=== PATIENT | female | born 1940 | race African-American/Black ===

== ENCOUNTER 2017-01-22 00:07 | Inpatient (IN) ==
--- NOTE | 2017-01-22 02:09 | Emergency Department Note ---
Arrival - Arrival Chief Complaint: Urogenital - Female ED Nursing Triage Note: C/O Hematuria in giang back- Onset unknown- Nurse that came on at 2300 noticed it during assessment. Unknown when catheter was placed. Pt is nonverbal at baseline Mode of Arrival: Stretcher Time Seen by Provider: 01/22/17 01:16 - History of Present Illness HPI Narrative: This is a 76-year-old female of descent from the [facility] division of his [facility] who has had a previous CVA and dementia resulting in a persistent vegetative state who has chronic renal insufficiency and chronic GI blood loss requiring blood transfusions frequently and who is a DNR with a chronic indwelling Giang catheter from which she gets frequent urinary tract infections who presents with gross hematuria per the Giang catheter. Date of Last Menstrual Period: NA Allergies/Adverse Reactions: Allergies Allergy/AdvReac Type Severity Reaction Status Date / Time morphine AdvReac Mild ITCHING Verified 08/21/16 12:02 Home Medications: Home Medications Medication Instructions Recorded Confirmed Type Aspirin [Ecotrin] 1 tablet PEG DAILY 03/10/15 04/04/16 History Carvedilol [Coreg] 3.125 mg PEG BID 01/24/16 04/04/16 History Doxazosin Mesylate 2 mg PEG DAILY 01/24/16 04/04/16 History Insulin Detemir [Levemir] 34 unit SUBCUT BEDTIME 01/24/16 04/04/16 History Multivitamin Liquid (Centrum) 15 ml PEG DAILY 01/24/16 04/04/16 History [Centrum Liquid] Ferrous Sulfate Liquid [Feosol 300 mg PEG TID udcup 04/09/16 Rx Liquid] Review of System - Review of System ROS unobtainable: due to mental status, due to dementia, due to encephalopathy Medical,Surgical,& Family Hx - Medical History Cardio: History of: CHF, Hypertension No history of: [place] Neurology: History of: Cerebrovascular Accident (2004 weak on left side.) No history of: Seizures Endocrine: History of: Diabetes Mellitus (IDDM), Diabetes Mellitus (NIDDM) Respiratory: History of: Pulmonary Embolism Renal: History of: Renal Failure, Renal Problems ( kidney failure from dehydration in the past) Genitourinary: History of: Recurring Urinary Tract Infections (has giang 2015) Gastrointestinal: History of: Gastrointestinal Bleed, Gastrointestinal Cancer, GI Problems (PEG tube, dysphagia, colostomy) Musculoskeletal: History of: Back/Neck Problems (history of back surgery to remove growth.) No history of: Musculoskeletal Problems Hematology: History of: Clotting Problems (prior history of DVTs) Other: History of: Cancer (Colon Cancer 2005), Skin Problems (decubitus ulcer on buttocks) - Surgical History HEENT Surgeries: Surgical HX of: Eye Surgery (cataract surgery) Abdominal Surgeries: Surgical HX of: Abdominal Surgery (resection of 80% of the colon), Colonoscopy (last done in our records on 08/01/[address] Almonte-- residual 40 cm normal) Reproductive Surgeries: Surgical HX of;: Section, Hysterectomy Orthopedic Surgeries: Surgical HX of;: Orthopedic Surgery (screw placed to left hip in 2013), Total Hip Replacement - Family History Family History: Reports;: Family Diabetes (sister, mom), Family Heart Disease ( brother-heart attack), Family Hypertension (sister), Family Stroke (brother) - Social History Smoking Status: Unknown if ever smoked Frequency of Alcohol Use: None Type of Drug Use: None Exam Vital Signs: Vital Signs Temperature 98.4 F 01/22/17 00:07 Pulse Rate 65 01/22/17 00:07 Respiratory Rate 16 01/22/17 00:07 Blood Pressure 148/57 01/22/17 00:07 O2 Sat by Pulse Oximetry 99 01/22/17 00:07 - General Exam limited due to: ALOC - Head Head exam: Present: atraumatic - Eye Eye exam: Present: normal appearance - ENT ENT exam: Present: normal exam - Neck Neck exam: Present: normal inspection - Chest Chest inspection: Present: normal inspection - Respiratory Respiratory exam: Present: normal lung sounds bilaterally - Cardiovascular Cardiovascular exam: Present: regular rate, normal rhythm - Abdominal Exam Abdominal exam: Present: soft, normal bowel sounds - Back Exam Back exam: Present: normal inspection - Skin Skin exam: Present: warm, dry Course Course Narrative: The patient's laboratory tests are consistent with serious dehydration. The patient has gross hematuria the cause of which is not clear. The CT scan of the abdomen and pelvis did not reveal a specific reason why she has hematuria. Therefore a three-way catheter will be placed with continuous bladder irrigation with possible urology consultation. The patient will be admitted to the hospital under the hospitalist service. The case was discussed with the hospitalist who agreed to admit the patient. Results - Labs CBC & BMP: 01/22/17 02:52 01/22/17 02:52 Disposition Clinical Impression: Dehydration, Gross hematuria Disposition: Still a Patient Additional Instructions: The patient's laboratory tests are consistent with serious dehydration. The patient has gross hematuria the cause of which is not clear. The CT scan of the abdomen and pelvis did not reveal a specific reason why she has hematuria. Therefore a three-way catheter will be placed with continuous bladder irrigation with possible urology consultation. The patient will be admitted to the hospital under the hospitalist service. The case was discussed with the hospitalist who agreed to admit the patient.
[2017-01-22 03:07] LABS: Basophils % 0.3 % (0.0-0.8); Eosinophils # 0.7 10*3/uL (0.0-0.87); Eosinophils % 5.7 % (0.00-10.9); Hematocrit 34.5 VOL% (35.7-47.0); Hemoglobin 10.8 GM/DL (12.0-16.0); Immature Granulocytes % 4.5 %; Immature Granulocytes Absolute 0.52 #; Lymphocytes # 1.5 10*3/uL (1.4-4.0); Mean Corpuscular HGB Conc 31.3 GM/DL (32-36); Mean Corpuscular Hemoglobin 27 PG (27-34); Mean Corpuscular Volume 85.2 FL (87-102); Mean Platelet Volume 12.2 FL (9.6-12.0); Monocytes # 1.3 10*3/uL (0.11-0.8); Monocytes % 11.4 % (1.7-12.7); NRBC # 0.03 10*3/uL; Neutrophils # 7.5 10*3/uL (1.4-7.4); Neutrophils % 65.1 % (38.7-73.9); Platelet Count 188 T/CUMM (130-400); Red Blood Count 4.05 MC/CUMM (3.8-5.5); Red Cell Distribution Width 16.2 % (9.3-17.3); White Blood Count 11.5 T/CUMM (4-12)
[2017-01-22 03:25] LABS: Apearance,Urine CLOUDY (Clear); Bacteria,Urine Occasional /HPF (Few); Bilirubin,Urine Negative (Negative); Blood, Urine Large mg/dL (Negative); Glucose,Urine (UA) 50 mg/dL (Negative); Ketones,Urine Negative (Negative); Nitrite,Urine Negative (Negative); Protein,Urine 100 MG/DL; RBC,Urine 3841 /HPF (0-4); Urine Color Red (Yellow); Urine Specific Gravity 1.017 (1.001-1.035); Urine Urobilinogen < 2.0 EU/DL (0.2-1.0); WBC,Urine 31 /HPF (0-6)
[2017-01-22 04:03] LABS: Alanine Aminotransferase 52 U/L (13-56); Albumin 2.2 G/DL (3.4-5.0); Alkaline Phosphatase 605 U/L (45-117); Aspartate Amino Transferase 51 U/L (0-37); Bilirubin,Total < 0.39 MG/DL (0.2-1.0); Blood Urea Nitrogen 160 MG/DL (7-18); Calcium 8.6 MG/DL (8.5-10.1); Glucose 133 MG/DL (74-106); Osmolality,Calculated 348.3 MOS/KG (273-304); Potassium 5.4 MMOL/L (3.5-5.1); Sodium 148 MMOL/L (136-145)
[2017-01-22 04:13] LABS: Band Neutrophils 3 % (0-10); Eosinophils 5 % (0-10); Hypochromasia 2+; Lymphocytes 16 % (20-55); Metamyelocytes 4 %; Platelet Estimate Normal; Segmented Neutrophils 63 % (50-85); Total Cells Counted 100
[2017-01-22] MEDS ORDERED: SODIUM CHLORIDE 0.9% 2,000 ML IV STA (05:44)
[2017-01-22] MEDS ORDERED: cefTRIAXone 1,000 MG in SODIUM CHLORIDE 0.9% 100 ML IV STA (05:44)
[2017-01-22] MEDS ORDERED: cefTRIAXone 1,000 MG VIAL ONE (06:14)
--- NOTE | 2017-01-22 06:25 | Hospitalist History & Physical ---
Assessment and Plan - Time spent with patient Time spent with patient: Less than 30 minutes (1) UTI (lower urinary tract infection) Status: Acute Assessment and plan: Urine culture pending Rocephin 1gram q12 Chronic giang that was changed out Bladder irrigated with significant improvement of hematuria Afebrile Gentle hydration Current Visit: Yes (2) Gross hematuria Status: Acute Current Visit: Yes (3) Dehydration Status: Acute Current Visit: Yes (4) Hypertension Status: Chronic Assessment and plan: Will continue home medications once confirmed Current Visit: No (5) Diabetes mellitus Status: Chronic Assessment and plan: Accuchecks and SSI Will resume medications once confirmed Current Visit: No Qualifiers: Diabetes mellitus type: type 2 (6) Sacral decubitus ulcer Status: Chronic Assessment and plan: Wound consult Current Visit: No History of Present Illness Chief complaint: hematuria History of present illness: Called to the ED Ms. Sumner who is a 76 year old female who is a [facility] resident. The nurse noticed blood in the giang and sent patient to the ER. Ms. Sumner has an extensive health history including CHF, CVA, dementia, DM, PE, renal failure, recurring UTIs, GI cancer with bleeds, HTN, left hip surgery, sacral decubitus ulcer, and IVC filter placement. She had a stroke in 2004 which led her to become a [facility] resident. At the time of the assessment, family is at the bedside and states she is currently at her baseline. In the ER , she was found to be dehydrated with a UTI. Rocephin and fluid resuscitation was started. Her giang was irrigated which greatly improved her urine. There is a possibility the giang balloon was irritating the wall of the bladder. She will be admitted for hydration and treatment of UTI. Home Medications Medication Instructions Recorded Confirmed Type Aspirin [Ecotrin] 1 tablet PEG DAILY 03/10/15 04/04/16 History Carvedilol [Coreg] 3.125 mg PEG BID 01/24/16 04/04/16 History Doxazosin Mesylate 2 mg PEG DAILY 01/24/16 04/04/16 History Insulin Detemir [Levemir] 34 unit SUBCUT BEDTIME 01/24/16 04/04/16 History Multivitamin Liquid (Centrum) 15 ml PEG DAILY 01/24/16 04/04/16 History [Centrum Liquid] Ferrous Sulfate Liquid [Feosol 300 mg PEG TID udcup 04/09/16 Rx Liquid] Allergies Allergy/AdvReac Type Severity Reaction Status Date / Time morphine AdvReac Mild ITCHING Verified 08/21/16 12:02 Medical,Surgical,& Family Hx - Medical History Cardio: History of: CHF, Hypertension No history of: [place] Neurology: History of: Cerebrovascular Accident (2005 weak on left side.) No history of: Seizures Endocrine: History of: Diabetes Mellitus (IDDM), Diabetes Mellitus (NIDDM) Respiratory: History of: Pulmonary Embolism Renal: History of: Renal Failure, Renal Problems ( kidney failure from dehydration in the past) Genitourinary: History of: Recurring Urinary Tract Infections (has rahat 2016) Gastrointestinal: History of: Gastrointestinal Bleed, Gastrointestinal Cancer, GI Problems (PEG tube, dysphagia, colostomy) Musculoskeletal: History of: Back/Neck Problems (history of back surgery to remove growth.) No history of: Musculoskeletal Problems Hematology: History of: Clotting Problems (prior history of DVTs) Other: History of: Cancer (Colon Cancer 2005), Skin Problems (decubitus ulcer on buttocks) - Surgical History HEENT Surgeries: Surgical HX of: Eye Surgery (cataract surgery) Abdominal Surgeries: Surgical HX of: Abdominal Surgery (resection of 80% of the colon), Colonoscopy (last done in our records on 08/01/[address] Almonte-- residual 40 cm normal) Reproductive Surgeries: Surgical HX of;: Section, Hysterectomy Orthopedic Surgeries: Surgical HX of;: Orthopedic Surgery (screw placed to left hip in 2013), Total Hip Replacement - Family History Family History: Reports;: Family Diabetes (sister, mom), Family Heart Disease ( brother-heart attack), Family Hypertension (sister), Family Stroke (brother) - Social History Smoking Status: Unknown if ever smoked Frequency of Alcohol Use: None Type of Drug Use: None Marital Status: Functional capacity: bed bound ROS unobtainable: due to mental status Exam - Constitutional Vitals: Period Temp Pulse Resp BP Sys/Bautista Pulse Ox Last 24 Hr 98.4 F-98.4 F 65-65 16-16 143-148/57-58 99 General appearance: normal weight, other (deconditioned) - Head Head exam: Present: normal inspection, normocephalic - Eye Eye exam: Present: EOMI Pupils: Present: MARIAH - ENT ENT exam: Present: normal exam - Neck Neck exam: Present: normal inspection - Respiratory Respiratory exam: Present: clear to auscultation bilaterally. Absent: accessory muscle use (Respirations even and non-labored with symmetrical rise and fall of chest noted. ) - Cardiovascular Cardiovascular exam: Present: regular rate and rhythm - GI/Abdominal GI/Abdominal exam: Present: normal bowel sounds, soft. Absent: firm - Extremities Exam Extremities exam: Present: normal capillary refill - Neurological Exam Neurological exam: Present: other (Obtunded with no response to verbal or painful stimuli. No spontaneous ext or eye movement. Patient is at baseline. ) - Skin Skin exam: Present: normal color, warm, intact Results - Labs CBC & BMP: 01/22/17 02:52 01/22/17 02:52 Lab Results: I have reviewed the past 24 hour labs - Diagnostic Findings Procedure: CT Abdomen and Pelvis: report reviewed by me (Small amount of blood in urinary bladder)
[2017-01-22] MEDS ORDERED: DOCUSATE SODIUM 100 MG CAPSULE PO PRN (07:17)
[2017-01-22] MEDS ORDERED: DEXTROSE 50% 25 GM/50 ML VIAL IV PRN (07:17)
[2017-01-22] MEDS ORDERED: ONDANSETRON 4 MG/2 ML VIAL IV PRN (07:17)
[2017-01-22] MEDS ORDERED: SODIUM CHLORIDE 0.9% 500 ML IV ONE (07:17)
[2017-01-22] MEDS ORDERED: ACETAMINOPHEN 325 MG TABLET PO PRN (07:17)
[2017-01-22] MEDS ORDERED: GLUCAGON 1 MG VIAL IM PRN (07:17)
--- NOTE | 2017-01-22 07:46 | CT Report ---
Exam: CT abdomen and pelvis without intravenous contrast Exam date: 01/22/2017 2:12 AM Clinical History: 76 years,Female, gross hematuria, abdominal pain, generalized Technique: Axial computed tomography images of the abdomen and pelvis without intravenous contrast. All CT scans at this facility use one or more dose reduction techniques. Automated exposure control, MA/KV adjustment per patient size (including targeted exam Square dose is matched to indication) or iterative reconstruction technique Comparison: June 21, 2009 at 1033 hours Findings: Lower thorax: Dependent atelectasis. Coronary atheromatous changes. Abdomen: Liver: Unremarkable Gallbladder and bile ducts: Small stones within an otherwise normal-appearing gallbladder. No ductal dilatation. Pancreas: Pancreas is normal. Spleen: Spleen is normal. Adrenals: No adrenal mass. Kidneys and ureters: Normal in size, echotexture and morphology. No hydronephrosis. No ureteral calculus. Stomach and bowel: Percutaneous gastrostomy in satisfactory position. Postoperative changes consistent with subtotal colectomy and left lower quadrant ileostomy.. Appendix: Absent. Pelvis: Bladder: Nassar catheter decompressing the urinary bladder. Small amount of increased density along the catheter,, may represent hemorrhage Reproductive: Unremarkable as visualized. Abdomen and pelvis: Intraperitoneal space: No pneumoperitoneum. No free intraperitoneal fluid Bones/joints: Spondylitic changes throughout the spinal axis, deformity of the coccyx is also noted. Remote fixation of left hip fracture. Soft tissues: Sacral decubitus ulcer Vasculature: No aortic aneurysm. Atheromatous calcifications noted along the aorta and branch vessels. Lymph nodes: No adenopathy Impression: 1. Suspect small amount of hemorrhage within the urinary bladder. No demonstratable stones, findings may be reactive secondary to catheter placement 2. Cholelithiasis 3. Sacral decubitus ulcer with coccygeal deformity and sclerosis. If concern for osteomyelitis, nuclear medicine bone scan or MRI could be performed to further characterize PROCEDURE INTERPRETED AT [facility] DEPARTMENT OF RADIOLOGY Final Report Signed by: Alvin Hernandez
[2017-01-22] MEDS: INSULIN LISPRO 100 UNIT/ML SUBCUT SCH ×2 (08:07→16:04)
[2017-01-22] MEDS ORDERED: PANTOPRAZOLE 40 MG TABLET PO SCH (09:00)
[2017-01-22 09:17] LABS: Hematocrit 32.1 VOL% (35.7-47.0)
[2017-01-22 09:52] LABS: Calcium 8.4 MG/DL (8.5-10.1); Osmolality,Calculated 344.9 MOS/KG (273-304)
[2017-01-22] MEDS: SODIUM CHLORIDE 0.9% 1,000 ML IV SCH ×2 (10:04→22:59)
[2017-01-22] MEDS: SODIUM HYPOCHLORITE 0.25% IRRIG 473 ML BOTTLE TOP SCH ×2 (12:50→21:38)
[2017-01-22] MEDS: INSULIN GLARGINE 100 UNIT/ML SUBCUT SCH (16:04)
--- NOTE | 2017-01-22 17:06 | Case Mgmt Physician Query Form ---
TB Signs and Symptoms Screening ([place]) INSTRUCTIONS: To be completed annually on residents/staff with a significant Tuberculin Skin Test (TST) upon admission/hire or a prior significant TST. To be completed on all staff at hire. Please respond to each listed symptom with an (X) in either the "YES" or "NO" box. Do you currently have any of the following symptoms: YES NO ( ) (x ) A cough If yes, is it: ( ) Productive ( ) Non- productive ( ) (x ) Hemoptysis (spitting up blood) ( ) (x ) Chest pains ( ) (x ) Weight Loss ( ) (x ) Fever ( ) (x ) Night Sweats ( ) (x ) Weakness ( ) (x ) Loss of Appetite ( ) (x ) Difficulty Breathing If you answered YES" to any of the above questions, how long have symptoms been present? Comments: If you have any questions, please contact me. Thank you, Omayra WAGNER P: [phone] F: [phone] E: [email or web address]
[2017-01-22] MEDS: cefTRIAXone 1,000 MG in SODIUM CHLORIDE 0.9% 100 ML IV SCH (17:22)
[2017-01-22] MEDS ORDERED: TUBERCULIN SKIN TEST 0.1 ML SYRINGE INTRADERM ONE (18:00)
[2017-01-22] MEDS: CARVEDILOL 3.125 MG TABLET PEG SCH (21:35)
[2017-01-22] MEDS: FERROUS SULFATE 300 MG/5 ML UDCUP PEG SCH (21:37)
[2017-01-22] MEDS: levETIRAcetam LIQUID 100 MG/ML 30 ML/BOTTLE PEG SCH (22:59)
[2017-01-23] MEDS: cefTRIAXone 1,000 MG in SODIUM CHLORIDE 0.9% 100 ML IV SCH ×2 (06:06→17:04)
[2017-01-23] MEDS: FERROUS SULFATE 300 MG/5 ML UDCUP PEG SCH ×3 (08:05→20:35)
[2017-01-23] MEDS: LANSOPRAZOLE ODT 30 MG TABLET PEG SCH (08:05)
[2017-01-23] MEDS: DOXAZOSIN 1 MG TABLET PEG SCH (08:05)
[2017-01-23] MEDS: CARVEDILOL 3.125 MG TABLET PEG SCH ×2 (08:05→20:35)
[2017-01-23] MEDS: SODIUM HYPOCHLORITE 0.25% IRRIG 473 ML BOTTLE TOP SCH ×2 (08:05→20:36)
[2017-01-23] MEDS: levETIRAcetam LIQUID 100 MG/ML 30 ML/BOTTLE PEG SCH ×2 (08:06→20:35)
[2017-01-23] MEDS: PSYLLIUM POWDER 3.7 GM/PACK PEG SCH (08:06)
[2017-01-23] MEDS: INSULIN LISPRO 100 UNIT/ML SUBCUT SCH ×2 (08:07→17:03)
[2017-01-23 08:08] LABS: Osmolality,Calculated 337.9 MOS/KG (273-304); Potassium 4.9 MMOL/L (3.5-5.1)
--- NOTE | 2017-01-23 10:37 | Physician Query Form ---
CLICK EDIT DOCUMENT TO SELECT QUERY ANSWER --> OK --> SIGN Annemarie Last RN Clinical Hotel Registration Clerk W) [phone] (f) [phone] [email or web address] PROVIDERS: Make your selection(s) from the choices in EACH section by typing an "x" and enter comments in the comment section. Please use your independent medical judgment in providing your response. This request does not imply that any particular answer is desired or expected. CLINICAL INDICATORS: (Providers should not edit this section) Based on lab results of creatinine on admission of 1.50 with a GFR of 41 and decreased to 1.10. Pt. treated with IV fluids of Normal Saline. Clarify which of the following most accurately represents the patient's renal status: ( x) Acute kidney injury (non-traumatic) ( ) Acute renal failure ( ) Acute renal failure with underlying Chronic Kidney Disease (CKD) - please provide stage below ( ) CKD - please provide stage below ( ) Other, please specify: ( ) Clinically unable to determine Chronic Kidney Disease Stages Source: National Kidney Disease Foundation ( ) Stage I (eGFR > or = 90) ( ) Stage II (eGFR 60 - 89) ( ) Stage III (eGFR 30 - 59) ( ) Stage IV (eGFR 15 - 29) ( ) Stage V (eGFR < 15 or dialysis) COMMENTS: PLEASE ALSO DOCUMENT RESPONSE IN PROGRESS NOTES AND/OR DISCHARGE SUMMARY Use of terms such as suspected, likely, or probable (associated with a specific diagnosis that is being evaluated, monitored, or treated as if it exists) are acceptable and can be restated in the discharge summary if not ruled out. MTDD
--- NOTE | 2017-01-23 10:40 | Physician Query Form ---
CLICK EDIT DOCUMENT TO SELECT QUERY ANSWER --> OK --> SIGN Annemarie Last RN Clinical Geography Instructor W) [phone] (f) [phone] [email or web address] PROVIDERS: Make your selection(s) from the choices in EACH section by typing an "x" and enter comments in the comment section. Please use your independent medical judgment in providing your response. This request does not imply that any particular answer is desired or expected. CLINICAL INDICATORS: (Providers should not edit this section) Pt. admitted with UTI. Based on documentation of "chronic indwelling Nassar catheter". Based on the above, could you clarify the appropriate diagnosis, if significant , that supports the above abnormalities and additional evaluation, monitoring, and/or treatment rendered: ( ) UTI due to chronic indwelling Nassar catheter ( ) UTI not due to chronic indwelling Nassar catheter ( ) Other, please specify: ( x) Clinically unable to determine COMMENTS: PLEASE ALSO DOCUMENT RESPONSE IN PROGRESS NOTES AND/OR DISCHARGE SUMMARY Use of terms such as suspected, likely, or probable (associated with a specific diagnosis that is being evaluated, monitored, or treated as if it exists) are acceptable and can be restated in the discharge summary if not ruled out. MTDD
[2017-01-23] MEDS: INSULIN GLARGINE 100 UNIT/ML SUBCUT SCH (17:03)
--- NOTE | 2017-01-23 17:18 | Hospitalist Progress Note ---
Assessment and Plan (1) UTI (lower urinary tract infection) Status: Acute Assessment and plan: Rocephin Urine culture growing gram negative rods Current Visit: Yes (2) Sacral decubitus ulcer Status: Chronic Current Visit: No (3) Dehydration Status: Acute Current Visit: Yes (4) Gross hematuria Status: Acute Current Visit: Yes (5) Hypertension Status: Chronic Current Visit: No (6) Hypernatremia Status: Acute Assessment and plan: Increase free water fluids Discontinue NS Current Visit: Yes Hospitalist: Subjective Interval history: No acute events overnight. Patient's and son are present and report that patient should be DO NOT RESUSCITATE. Exam - Constitutional Vitals: Period Temp Pulse Resp BP Sys/Bautista Pulse Ox Last 24 Hr 96.5 F-98.8 F 57-69 14-20 110-137/51-73 95-100 General appearance: normal weight - Head Head exam: Present: normocephalic, atraumatic - Eye Eye exam: Present: EOMI Pupils: Present: MARIAH - ENT ENT exam: Present: normal exam - Neck Neck exam: Present: normal inspection - Respiratory Respiratory exam: Present: clear to auscultation bilaterally. Absent: rhonchi, wheezes - Cardiovascular Cardiovascular exam: Present: regular rate and rhythm - GI/Abdominal GI/Abdominal exam: Present: normal bowel sounds, soft. Absent: tenderness, rebound - Extremities Exam Extremities exam: Present: normal inspection - Back Exam Back exam: Present: normal inspection - Neurological Exam Neurological exam: Present: other (unresponsive) - Psychiatric Psychiatric exam: Present: other (unresponsive) - Skin Skin exam: Present: warm, intact Results - Labs CBC & BMP: 01/22/17 08:47 01/23/17 07:19 Quality Measures - VTE Contraindication to Pharmacological VTE Prophylaxis: High Risk of Bleeding
[2017-01-24 06:17] LABS: Basophils % 0.3 % (0.0-0.8); Eosinophils # 0.5 10*3/uL (0.0-0.87); Eosinophils % 6.3 % (0.00-10.9); Hematocrit 29.9 VOL% (35.7-47.0); Hemoglobin 9.4 GM/DL (12.0-16.0); Immature Granulocytes % 4.9 %; Immature Granulocytes Absolute 0.39 #; Lymphocytes # 1.5 10*3/uL (1.4-4.0); Lymphocytes % 18.8 % (21.3-54.2); Mean Corpuscular HGB Conc 31.4 GM/DL (32-36); Mean Corpuscular Hemoglobin 27 PG (27-34); Mean Corpuscular Volume 86.4 FL (87-102); Mean Platelet Volume 12.8 FL (9.6-12.0); Monocytes % 12.3 % (1.7-12.7); Neutrophils # 4.6 10*3/uL (1.4-7.4); Neutrophils % 57.4 % (38.7-73.9); Platelet Count 207 T/CUMM (130-400); Red Blood Count 3.46 MC/CUMM (3.8-5.5); Red Cell Distribution Width 16.4 % (9.3-17.3)
[2017-01-24] MEDS: cefTRIAXone 1,000 MG in SODIUM CHLORIDE 0.9% 100 ML IV SCH ×2 (06:25→17:44)
[2017-01-24 06:39] LABS: Band Neutrophils 1 % (0-10); Eosinophils 8 % (0-10); Giant Platelets Few; Hypochromasia 1+; Lymphocytes 14 % (20-55); Microcytosis Slight; Platelet Estimate Adequate; Segmented Neutrophils 70 % (50-85); Total Cells Counted 100
[2017-01-24 06:57] LABS: Calcium 7.9 MG/DL (8.5-10.1); Osmolality,Calculated 328.1 MOS/KG (273-304); Potassium 4.9 MMOL/L (3.5-5.1)
[2017-01-24 07:05] LABS: Phosphorous 3.4 MG/DL (2.5-4.9); Prealbumin 20.5 MG/DL (20-40)
[2017-01-24] MEDS: INSULIN LISPRO 100 UNIT/ML SUBCUT SCH ×2 (07:58→17:44)
[2017-01-24] MEDS: FERROUS SULFATE 300 MG/5 ML UDCUP PEG SCH ×3 (07:59→22:00)
[2017-01-24] MEDS: DOXAZOSIN 1 MG TABLET PEG SCH (07:59)
[2017-01-24] MEDS: PSYLLIUM POWDER 3.7 GM/PACK PEG SCH (08:00)
[2017-01-24] MEDS: CARVEDILOL 3.125 MG TABLET PEG SCH ×2 (08:00→22:00)
[2017-01-24] MEDS: SODIUM HYPOCHLORITE 0.25% IRRIG 473 ML BOTTLE TOP SCH ×2 (08:00→22:00)
[2017-01-24] MEDS: LANSOPRAZOLE ODT 30 MG TABLET PEG SCH (08:00)
[2017-01-24] MEDS: levETIRAcetam LIQUID 100 MG/ML 30 ML/BOTTLE PEG SCH ×2 (08:01→22:00)
--- NOTE | 2017-01-24 16:35 | Hospitalist Progress Note ---
Assessment and Plan (1) UTI (lower urinary tract infection) Status: Acute Assessment and plan: Rocephin Urine culture growing E.coli Current Visit: Yes (2) Sacral decubitus ulcer Status: Chronic Current Visit: No (3) Dehydration Status: Acute Current Visit: Yes (4) Gross hematuria Status: Acute Current Visit: Yes (5) Hypertension Status: Chronic Current Visit: No (6) Hypernatremia Status: Acute Assessment and plan: Increase free water fluids Discontinue NS Current Visit: Yes Hospitalist: Subjective Interval history: No acute events overnight. Working on placement at a different [facility]. Exam - Constitutional Vitals: Period Temp Pulse Resp BP Sys/Bautista Pulse Ox Last 24 Hr 96.0 F-98.6 F 64-90 18-20 112-153/55-99 99-100 General appearance: normal weight - Head Head exam: Present: normocephalic, atraumatic - Eye Eye exam: Present: EOMI Pupils: Present: MARIAH - ENT ENT exam: Present: normal exam - Neck Neck exam: Present: normal inspection - Respiratory Respiratory exam: Present: clear to auscultation bilaterally. Absent: rhonchi, wheezes - Cardiovascular Cardiovascular exam: Present: regular rate and rhythm - GI/Abdominal GI/Abdominal exam: Present: normal bowel sounds, soft. Absent: tenderness, rebound - Extremities Exam Extremities exam: Present: normal inspection - Back Exam Back exam: Present: normal inspection - Psychiatric Psychiatric exam: Absent: agitated, anxious - Skin Skin exam: Present: warm, intact Results - Labs CBC & BMP: 01/24/17 05:13 01/24/17 05:13 Quality Measures - VTE Contraindication to Pharmacological VTE Prophylaxis: High Risk of Bleeding
[2017-01-24] MEDS: INSULIN GLARGINE 100 UNIT/ML SUBCUT SCH (17:44)
[2017-01-25 05:55] LABS: Calcium 7.7 MG/DL (8.5-10.1); Magnesium 1.6 MG/DL (1.8-2.4); Osmolality,Calculated 306.1 MOS/KG (273-304); Potassium 4.9 MMOL/L (3.5-5.1)
[2017-01-25] MEDS: cefTRIAXone 1,000 MG in SODIUM CHLORIDE 0.9% 100 ML IV SCH (06:07)
[2017-01-25] MEDS: DOXAZOSIN 1 MG TABLET PEG SCH (09:32)
[2017-01-25] MEDS: LANSOPRAZOLE ODT 30 MG TABLET PEG SCH (09:32)
[2017-01-25] MEDS: SODIUM HYPOCHLORITE 0.25% IRRIG 473 ML BOTTLE TOP SCH (09:32)
[2017-01-25] MEDS: FERROUS SULFATE 300 MG/5 ML UDCUP PEG SCH ×2 (09:32→14:32)
[2017-01-25] MEDS: CARVEDILOL 3.125 MG TABLET PEG SCH (09:32)
[2017-01-25] MEDS: levETIRAcetam LIQUID 100 MG/ML 30 ML/BOTTLE PEG SCH (09:33)
[2017-01-25] MEDS: INSULIN LISPRO 100 UNIT/ML SUBCUT SCH (09:33)
[2017-01-25] MEDS: PSYLLIUM POWDER 3.7 GM/PACK PEG SCH (09:33)
[2017-01-25 10:59] VITALS: BP 125/57
--- NOTE | 2017-01-25 11:48 | Discharge Summary ---
Hospital Course - Hospital Course Hospital Course: Ms. Sumner is a 76 y/o AAF who has an extensive health history including CHF, CVA , dementia, DM, PE, renal failure, recurring UTIs, GI cancer with bleeds, HTN, left hip surgery, sacral decubitus ulcer, and IVC filter placement. She had a stroke in 2004 which led her to become a prison resident. The nurse noticed blood in the giang and sent patient to the ER. She was admitted for hypernatremia and urinary tract infection. She was started on Rocephin. Her tube feeds were restarted with increase in free water flushes. Her hematuria has now resolved. Urine culture grew E.coli. She has now reached maximal benefit of inpatient stay and will be discharged to home. - Time spent with patient Time with patient DS: Greater than 30 minutes (40) Diagnosis - Discharge Diagnosis (1) UTI (lower urinary tract infection) Status: Resolved (2) Sacral decubitus ulcer Status: Chronic (3) Dehydration Status: Resolved (4) Gross hematuria Status: Resolved (5) Hypertension Status: Chronic (6) Hypernatremia Status: Resolved Specialty Discharge - Follow Up or Referrals Discharge Plan - Discharge Data Disposition: Disch/Xfer to Snf Condition at Discharge: Stable Discharge Diet: advance to your usual diet - Discharge Medications New RX: Levofloxacin Tab [Levaquin Tab] 500 mg PO DAILY #2 tablet Continue RX: Aspirin [Ecotrin] 1 tablet PEG DAILY RX: Multivitamin Liquid (Centrum) [Centrum Liquid] 15 ml PEG DAILY RX: Doxazosin Mesylate 2 mg PEG DAILY RX: Carvedilol [Coreg] 3.125 mg PEG BID RX: Insulin Detemir [Levemir] 40 unit SUBCUT BEDTIME RX: Esomeprazole Magnesium [Nexium] 40 mg PEG DAILY RX: Ferrous Sulfate Liquid [Feosol Liquid] 220 mg PEG TID RX: levETIRAcetam [Levetiracetam] 500 mg PEG BID RX: Wheat Dextrin Powder [Benefiber Powder] 1 teaspoon PEG DAILY - Follow Up or Referral - Forms/Instructions Instructions: Dehydration (DC), Urinary Tract Infection in Men (DC), Hyponatremia (DC) Exam - Constitutional Vitals: Period Temp Pulse Resp BP Sys/Bautista Pulse Ox Last 24 Hr 96.0 F-99.3 F 63-70 18-22 118-138/57-74 99-100 General appearance: normal weight - Head Head exam: Present: normocephalic, atraumatic - Eye Eye exam: Present: EOMI Pupils: Present: MARIAH - ENT ENT exam: Present: normal exam - Neck Neck exam: Present: normal inspection - Respiratory Respiratory exam: Present: clear to auscultation bilaterally. Absent: rhonchi, wheezes - Cardiovascular Cardiovascular exam: Present: regular rate and rhythm - GI/Abdominal GI/Abdominal exam: Present: normal bowel sounds - Extremities Exam Extremities exam: Present: normal inspection - Back Exam Back exam: Present: normal inspection - Neurological Exam Neurological exam: Present: other (unresponsive) - Skin Skin exam: Present: warm, intact Discharge Results Procedures and tests throughout hospitalization: Pending Orders 01/28/17 04:00 Basic Metabolic Panel MOTH Magnesium MOTH Phosphorous MOTH Prealbumin MOTH Labs on day of discharge: Labs from last 24 hours 01/25/17 01/24/17 01/24/17 04:43 19:56 16:02 Sodium 142 Potassium 4.9 Chloride 113 H Carbon Dioxide 22 Anion Gap 11.9 BUN 65 H D Creatinine 0.80 GFR Calculation 80 BUN/Creatinine Ratio 81.00 H Glucose 197 H POC Glucose 233 H 163 H Calculated Osmolality 306.1 H Calcium 7.7 L Magnesium 1.6 L 01/24/17 11:34 Sodium Potassium Chloride Carbon Dioxide Anion Gap BUN Creatinine GFR Calculation BUN/Creatinine Ratio Glucose POC Glucose 123 H Calculated Osmolality Calcium Magnesium DS: Provider Date of admission: 01/22/17 06:03 Primary care physician: . No PCP Attending physician on admission: Johan Mendieta MD Consults: 01/22/17 07:17 Consult to Case Mgmt/Social Srvs [CONS] Routine Reason for Case Mgmt/Social Srvs: Discharge Planning Consult to Occupational Therapy [CONS] Routine Reason for Occupational Therapy: Evaluate and Treat Consult to Physical Therapy [CONS] Routine Reason for Physical Therapy: Evaluate and Treat Consult to Wound Care - [place] [CONS] Routine Reason for Wound Care: Wound Care Management Consult Comment: sacral wound Discharging clinician: Julian Stevens MD
== END 2017-01-25 15:24 | DRG 689 ==
LOC: EDBD → EDUNIT# → N.ED 00:07 → N.EDINP 06:03 → SUATTDRO 06:03 → N.5E 06:28
PROVIDERS: ADMIT Internal Medicine; ATTEND Internal Medicine